=== PATIENT | male | born 2000 | race Caucasian/White ===

== ENCOUNTER 2018-08-29 14:02 | Emergency (ER) | payer SELFPAY ==
[~2018-08-29] VITALS: Ht 177.8 cm; Wt 63.6 kg
[2018-08-29 14:13] VITALS: BP 105/51; TEMP 98.2
[2018-08-29 15:52] VITALS: PULSE 57
== END 2018-08-29 15:55 | disposition home or self-care (01) ==
LOC: COL.ER 14:02
DX: H91.91 Unspecified hearing loss, right ear (principal)